=== PATIENT | female | born 1995 | race American Indian/Alaskan Native ===

== ENCOUNTER 2020-05-26 12:10 | Emergency (ER) | payer SELFPAY ==
[2020-05-26 14:22] VITALS: BP 132/79
--- NOTE | 2020-05-26 14:23 | Emergency Department Report ---
ED ENT HPI - General Chief complaint: Sore Throat Stated complaint: BODY ACHES/NO SPEECH Time Seen by Provider: 05/26/20 14:18 Source: patient Mode of arrival: Ambulatory Limitations: No Limitations - History of Present Illness Initial comments: This is a 24-year-old female nontoxic well in appearance with no signs of distress presents to the ED with complaint of sore throat. Patient denies any drooling or hoarseness. Patient denies any other symptoms. Denies any fever, chills, headache, nausea, vomiting, chest pain or SOB. Denies any other comp laints. MD complaint: sore throat -: days(s) Location: throat Severity: mild Severity scale (0 -10): 8 Quality: aching Consistency: constant Improves with: none Worsens with: swallowing Associated Symptoms: pain with swallowing, sore throat. denies: fever, cough, gum swelling, toothache, tinnitus, hearing loss, discharge from ear, rhinorrhea - Related Data Previous Rx's Medication Instructions Recorded Last Taken Type Amoxicillin/K Clav Tab [Augmentin 1 tab PO Q12HR #20 tab 05/26/20 Unknown Rx 875 mg] Ibuprofen [Motrin] 600 mg PO Q8H PRN #20 tablet 05/26/20 Unknown Rx Nystas/Diphen/Xyl Visc/Mylanta 15 ml PO Q4H PRN 5 Days ml 05/26/20 Unknown Rx [Magic Mouthwash] Allergies Allergy/AdvReac Type Severity Reaction Status Date / Time No Known Allergies Allergy Unverified 05/01/20 20:29 ED Dental HPI - General Chief complaint: Sore Throat Stated complaint: BODY ACHES/NO SPEECH Time Seen by Provider: 05/26/20 14:18 Source: patient Mode of arrival: Ambulatory Limitations: No Limitations - Related Data Previous Rx's Medication Instructions Recorded Last Taken Type Amoxicillin/K Clav Tab [Augmentin 1 tab PO Q12HR #20 tab 05/26/20 Unknown Rx 875 mg] Ibuprofen [Motrin] 600 mg PO Q8H PRN #20 tablet 05/26/20 Unknown Rx Nystas/Diphen/Xyl Visc/Mylanta 15 ml PO Q4H PRN 5 Days ml 05/26/20 Unknown Rx [Magic Mouthwash] Allergies Allergy/AdvReac Type Severity Reaction Status Date / Time No Known Allergies Allergy Unverified 05/01/20 20:29 ED Review of Systems ROS: Stated complaint: BODY ACHES/NO SPEECH Other details as noted in HPI Constitutional: denies: chills, fever Eyes: denies: eye pain, eye discharge, vision change ENT: throat pain. denies: ear pain Respiratory: denies: cough, shortness of breath, wheezing Cardiovascular: denies: chest pain, palpitations Endocrine: no symptoms reported Gastrointestinal: denies: abdominal pain, nausea, diarrhea Genitourinary: denies: urgency, dysuria, discharge Musculoskeletal: denies: back pain, joint swelling, arthralgia Skin: denies: rash, lesions Neurological: denies: headache, weakness, paresthesias Psychiatric: denies: anxiety, depression Hematological/Lymphatic: denies: easy bleeding, easy bruising ED Past Medical Hx - Past Medical History Previous Medical History?: No - Surgical History Past Surgical History?: No - Social History Smoking Status: Current Every Day Smoker Substance Use Type: None - Medications Home Medications: Home Medications Medication Instructions Recorded Confirmed Last Taken Type Amoxicillin/K Clav Tab [Augmentin 1 tab PO Q12HR #20 tab 05/26/20 Unknown Rx 875 mg] Ibuprofen [Motrin] 600 mg PO Q8H PRN #20 tablet 05/26/20 Unknown Rx Nystas/Diphen/Xyl Visc/Mylanta 15 ml PO Q4H PRN 5 Days ml 05/26/20 Unknown Rx [Magic Mouthwash] ED Physical Exam - General Limitations: No Limitations General appearance: alert, in no apparent distress - Head Head exam: Present: atraumatic, normocephalic - Eye Eye exam: Present: normal appearance - Expanded ENT Exam Expanded Ear exam: Present: normal external inspection Mouth exam: Present: normal external inspection. Absent: drooling, trismus, muffled voice Teeth exam: Present: normal inspection Throat exam: Positive: tonsillar erythema, tonsillomegaly (2+), tonsillar exudate, other (uvula midline. no abscess). Negative: R peritonsillar mass, L peritonsillar mass - Neck Neck exam: Present: normal inspection, full ROM. Absent: tenderness, meningismus, lymphadenopathy - Respiratory Respiratory exam: Present: normal lung sounds bilaterally. Absent: respiratory distress, wheezes, rales, rhonchi, stridor, chest wall tenderness, accessory muscle use, decreased breath sounds, prolonged expiratory - Cardiovascular Cardiovascular Exam: Present: regular rate, normal rhythm, normal heart sounds. Absent: bradycardia, tachycardia, irregular rhythm, systolic murmur, diastolic murmur, rubs, gallop - Extremities Exam Extremities exam: Present: full ROM - Back Exam Back exam: Present: full ROM. Absent: tenderness, CVA tenderness (R), CVA tenderness (L), muscle spasm, paraspinal tenderness, vertebral tenderness, rash noted - Neurological Exam Neurological exam: Present: alert, oriented X3, normal gait - Psychiatric Psychiatric exam: Present: normal affect, normal mood - Skin Skin exam: Present: warm, dry, intact, normal color. Absent: rash ED Course Vital Signs 05/26/20 14:18 Temperature 100.1 F H Pulse Rate 77 Respiratory 14 Rate Blood Pressure 132/79 [Left] O2 Sat by Pulse 99 Oximetry - Reevaluation(s) Reevaluation #1: 05/26/20 14:21 Patient is speaking in full sentences with no signs of distress noted. ED Medical Decision Making - Medical Decision Making Patient was instructed to Follow-up with a primary care doctor in 3-5 days or if symptoms worsen and continue return to emergency room as soon as possible. At time of discharge, the patient does not seem toxic or ill in appearance. No acute signs of distress noted. Patient agrees to discharge treatment plan of care. No further questions noted by the patient. Critical care attestation.: If time is entered above; I have spent that time in minutes in the direct care of this critically ill patient, excluding procedure time. ED Disposition Clinical Impression: Tonsillitis with exudate Disposition: DC-01 TO HOME OR SELFCARE Is pt being admited?: No Does the pt Need Aspirin: No Condition: Stable Instructions: Tonsillitis (ED) Additional Instructions: Follow-up with a primary care doctor in 3-5 days or if symptoms worsen and continue return to emergency room as soon as possible. Prescriptions: Amoxicillin/K Clav Tab [Augmentin 875 mg] 1 tab PO Q12HR #20 tab Nystas/Diphen/Xyl Visc/Mylanta [Magic Mouthwash] 15 ml PO Q4H PRN 5 Days ml PRN Reason: Sore Throat Ibuprofen [Motrin] 600 mg PO Q8H PRN #20 tablet PRN Reason: Pain/Fever Referrals: PRIMARY CARE,MD [Referring] - 3-5 Days EKATERINA HILL MD [Staff Physician] - 3-5 Days Forms: Work/School Release Form(ED)
== END 2020-05-26 14:45 | disposition home or self-care (01) ==
LOC: ED 12:10
DX: J03.90 Acute tonsillitis, unspecified (principal); F17.200 Nicotine dependence, unspecified, uncomplicated; Z79.899 Other long term (current) drug therapy
CPT/HCPCS: 99282

== ENCOUNTER 2020-11-01 22:19 | Emergency (ER) | payer SELFPAY ==
--- NOTE | 2020-11-01 22:35 | Emergency Department Report ---
ED Female HPI - General Stated complaint: DISCHARGE Time Seen by Provider: 11/01/20 22:32 Source: patient Limitations: No Limitations - History of Present Illness Initial comments: Patient is a 25-year-old female who presents for STD exposure with dysuria frequency and urgency x3 days. Last menstrual cycle was 2 weeks ago. There is been no fever, chills, or nausea vomiting. Patient is tolerating p.o. intake without symptoms. Vaginal discharge is described as white thick malodorous. There is been no bleeding. MD Complaint: vaginal discharge, dysuria, possible STD - Related Data Previous Rx's Medication Instructions Recorded Last Taken Type Amoxicillin/K Clav Tab [Augmentin 1 tab PO Q12HR #20 tab 05/26/20 Unknown Rx 875 mg] Ibuprofen [Motrin] 600 mg PO Q8H PRN #20 tablet 05/26/20 Unknown Rx Nystas/Diphen/Xyl Visc/Mylanta 15 ml PO Q4H PRN 5 Days ml 05/26/20 Unknown Rx [Magic Mouthwash] metroNIDAZOLE [Flagyl] 500 mg PO BID 7 Days #14 tab 11/01/20 Unknown Rx Allergies Allergy/AdvReac Type Severity Reaction Status Date / Time No Known Allergies Allergy Unverified 05/26/20 14:27 ED Review of Systems ROS: Stated complaint: DISCHARGE Other details as noted in HPI Constitutional: denies: chills, fever Eyes: denies: eye pain, eye discharge, vision change ENT: denies: ear pain, throat pain Respiratory: denies: cough, shortness of breath, wheezing Cardiovascular: denies: chest pain, palpitations Endocrine: no symptoms reported Gastrointestinal: denies: abdominal pain, nausea, vomiting, diarrhea Genitourinary: urgency, dysuria, frequency, discharge. denies: hematuria Musculoskeletal: denies: back pain, joint swelling, arthralgia Skin: denies: rash, lesions Neurological: denies: headache, weakness, paresthesias Psychiatric: as per HPI Hematological/Lymphatic: denies: easy bleeding, easy bruising ED Past Medical Hx - Social History Smoking Status: Current Every Day Smoker Substance Use Type: None - Medications Home Medications: Home Medications Medication Instructions Recorded Confirmed Last Taken Type Amoxicillin/K Clav Tab [Augmentin 1 tab PO Q12HR #20 tab 05/26/20 Unknown Rx 875 mg] Ibuprofen [Motrin] 600 mg PO Q8H PRN #20 tablet 05/26/20 Unknown Rx Nystas/Diphen/Xyl Visc/Mylanta 15 ml PO Q4H PRN 5 Days ml 05/26/20 Unknown Rx [Magic Mouthwash] metroNIDAZOLE [Flagyl] 500 mg PO BID 7 Days #14 tab 11/01/20 Unknown Rx ED Physical Exam - General General appearance: alert, in no apparent distress - Head Head exam: Present: atraumatic, normocephalic - Eye Eye exam: Present: normal appearance - ENT ENT exam: Present: mucous membranes moist - Neck Neck exam: Present: normal inspection - Respiratory Respiratory exam: Present: normal lung sounds bilaterally. Absent: respiratory distress - Cardiovascular Cardiovascular Exam: Present: regular rate, normal rhythm. Absent: systolic murmur, diastolic murmur, rubs, gallop - GI/Abdominal GI/Abdominal exam: Present: soft, normal bowel sounds. Absent: distended, tenderness, guarding, rebound, rigid, bruit, hernia - Rectal Rectal exam: Present: deferred - External exam: Present: other (deferred by patient ) - Extremities Exam Extremities exam: Present: normal inspection, full ROM. Absent: tenderness - Back Exam Back exam: Present: normal inspection, full ROM. Absent: tenderness, CVA tenderness (R), CVA tenderness (L) - Neurological Exam Neurological exam: Present: alert, oriented X3, CN II-XII intact - Psychiatric Psychiatric exam: Present: normal affect, normal mood - Skin Skin exam: Present: warm, dry, intact, normal color. Absent: rash ED Medical Decision Making - Lab Data Labs 11/01/20 22:53 Urine Color Straw Urine Turbidity Clear Urine pH 8.0 H Ur Specific [place] 1.011 Urine Protein <15 mg/dl Urine Glucose (UA) Neg Urine Ketones Neg Urine Blood Mod Urine Nitrite Neg Urine Bilirubin Neg Urine Urobilinogen < 2.0 Ur Leukocyte Esterase Neg Urine WBC (Auto) < 1.0 Urine RBC (Auto) 1.0 U Epithel Cells (Auto) 4.0 Urine Bacteria (Auto) 1+ Urine HCG, Qual Negative - Medical Decision Making hcg neg, ua: noted , plan tx for STI, follow up with pcp, health department for HIV and HSV screening , pt verbalized agreement and understanding of discharge plan. Critical care attestation.: If time is entered above; I have spent that time in minutes in the direct care of this critically ill patient, excluding procedure time. ED Disposition Clinical Impression: STI (sexually transmitted infection) Vaginitis Qualifiers: Chronicity: acute Qualified Code(s): N76.0 - Acute vaginitis Disposition: TO HOME OR SELFCARE Is pt being admited?: No Does the pt Need Aspirin: No Condition: Stable Instructions: Bacterial Vaginosis, [id number], Preventing Sexually Transmitted Infections, Adult Prescriptions: metroNIDAZOLE [Flagyl] 500 mg PO BID 7 Days #14 tab Referrals: [facility] [Provider Group] - 3-5 Days Forms: Work/School Release Form(ED) Time of Disposition: 23:39
[2020-11-01 23:05] LABS: Bacteria,Urine 1+ /HPF (Negative); Bilirubin,Urine NEG (Negative); Blood,Urine MOD (Negative); Color,Urine Straw (Yellow); Protein,Urine <15 mg/dL mg/dL (Negative); Urobilinogen,Urine < 2.0 mg/dL (<2.0); WBC,Urine < 1.0 /HPF (0.0-6.0)
[2020-11-01 23:07] LABS: HCG Qualitative,Urine Negative (Negative)
[2020-11-01] MEDS ORDERED: LIDOCAINE-MPF (1%) 10 MG/1 ML VIAL 5 ML INFILTRATI ONE (23:35)
[2020-11-01] MEDS ORDERED: AZITHROMYCIN 250 MG TAB PO ONE (23:35)
== END 2020-11-02 00:35 | disposition home or self-care (01) ==
LOC: ED 22:19
DX: A64 Unspecified sexually transmitted disease (principal); N76.0 Acute vaginitis; F17.200 Nicotine dependence, unspecified, uncomplicated; Z79.899 Other long term (current) drug therapy
CPT/HCPCS: 81001; 81025; 99283; J0696

== ENCOUNTER 2021-06-23 06:15 | Emergency (ER) | payer SELFPAY ==
[2021-06-23] MEDS ORDERED: KETOROLAC 30 MG/1 ML INJ IM ONE (06:22)
--- NOTE | 2021-06-23 06:24 | Event Note ---
ED Screening Note Date of service: 06/23/21 Time: 06:23 ED Screening Note: Patient 25-year-old -Turk[place] female who presents for right flank pain radiating to buttocks since last night. Patient states 5/10 pain achy spasming after attempting to pepper picker her dog and last night. Patient denies fall injury or trauma, there is no numbness tingling or paralysis there is been no loss or decrease in bowel or bladder function. Patient arrived to ED via POV patient is amatory patient is alert oriented x3 no acute distress. Patient denies dysuria frequency or urgency. Denies history of back injury. This initial assessment/diagnostic orders/clinical plan/treatment(s) is/are subject to change based on patients health status, clinical progression and re- assessment by fellow clinical providers in the ED. Further treatment and workup at subsequent clinical providers discretion. Patient/guardian urged not to elope from the ED as their condition may be serious if not clinically assessed and managed. Initial orders include: Ketoralac,
[2021-06-23] MEDS ORDERED: CYCLOBENZAPRINE 10 MG TAB PO ONE (06:32)
--- NOTE | 2021-06-23 06:38 | Emergency Department Report ---
HPI - General Time Seen by Provider: 06/23/21 06:26 - HPI HPI: Due to the Covid pandemic and our limited bed availability at this time, the patient was seen in an area of the emergency department that is not necessarily private. I asked the patient if they would like to wait to find a private room/area to do the history and physical, but I was given permission by the patient to proceed. We will attempt to find a more private area for further evaluation, treatment, and discussion of results if necessary. 25-year-old -[place] female presents to the emergency department with complaint of right-sided back pain that starts at the top of her buttock and goes up to the mid to lower back. 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 There is no further radiation of the pain. She denies any numbness or paresthesias, problems with bowel or bladder, or any neurological deficits. Currently the pain is 5 out of 10 in intensity, but worsens with any movement, standing or ambulation. No known alleviating factors. She has not taken anything for symptoms prior to presentation. She denies any other past medical history. ED Past Medical Hx - Past Medical History Previous Medical History?: No - Surgical History Past Surgical History?: No - Social History Smoking Status: Current Every Day Smoker - Medications Home Medications: Home Medications Medication Instructions Recorded Confirmed Last Taken Type Amoxicillin/K Clav Tab [Augmentin 1 tab PO Q12HR #20 tab 05/26/20 Unknown Rx 875 mg] Nystas/Diphen/Xyl Visc/Mylanta 15 ml PO Q4H PRN 5 Days ml 05/26/20 Unknown Rx [Magic Mouthwash] metroNIDAZOLE [Flagyl] 500 mg PO BID 7 Days #14 tab 11/01/20 Unknown Rx Cyclobenzaprine [Flexeril] 10 mg PO TID PRN #12 tablet 06/23/21 Unknown Rx Ibuprofen [Motrin 600 MG tab] 600 mg PO Q8H PRN #20 tablet 06/23/21 Unknown Rx ED Review of Systems ROS: Stated complaint: BACK/ANKLE PAIN Other details as noted in HPI Comment: All other systems reviewed and negative Constitutional: denies: chills, fever Eyes: denies: eye pain, vision change ENT: denies: ear pain, throat pain Respiratory: denies: cough, shortness of breath Cardiovascular: denies: chest pain, palpitations Gastrointestinal: denies: abdominal pain, vomiting Genitourinary: denies: dysuria, discharge Musculoskeletal: back pain. denies: arthralgia Skin: denies: rash, lesions Neurological: denies: headache, weakness Physical Exam - Physical Exam Vital Signs: Vital Signs 06/23/21 06/23/21 06:16 06:29 Temperature 98.4 F 97.7 F Pulse Rate 69 61 Respiratory 18 Rate Blood Pressure 122/95 133/77 O2 Sat by Pulse 99 Oximetry Physical Exam: GENERAL: The patient is well-developed well-nourished. HENT: Normocephalic. Atraumatic. Patient has moist mucous membranes. EYES: Extraocular motions are intact. NECK: Supple. Trachea is midline. CHEST/LUNGS: Clear to auscultation. There is no respiratory distress noted. HEART/CARDIOVASCULAR: Regular. There is no tachycardia. There is no murmur. ABDOMEN: Abdomen is soft, nontender. Patient has normal bowel sounds. SKIN: Skin is warm and dry. NEURO: The patient is awake, alert, and oriented. The patient is cooperative. The patient has no focal neurologic deficits. Normal speech. MUSCULOSKELETAL: There is no tenderness or deformity. There is no limitation range of motion. Muscle strength 5 out of 5 for upper and lower extremities bilaterally. BACK: There is bilateral lumbar paraspinal, and right-sided lower thoracic paraspinal, tenderness to palpation with associated taut musculature. No midline thoracic or lumbar tenderness to palpation. ED Course Vital Signs 06/23/21 06/23/21 06:16 06:29 Temperature 98.4 F 97.7 F Pulse Rate 69 61 Respiratory 18 Rate Blood Pressure 122/95 133/77 O2 Sat by Pulse 99 Oximetry ED Medical Decision Making - Medical Decision Making This patient presents to the emergency department with right-sided back pain from the top of her buttock up through the mid back. There is a known inciting event, after she began lifting her dog out last night. There is reproducible tenderness to palpation with associated taut musculature. No midline thoracic or lumbar tenderness to palpation. She denies any numbness or paresthesias, problems with bowel or bladder, or any neurological deficits. The patient was seen ambulatory in the emergency department both appears and feels stable. She was given a dose of Toradol and Flexeril and upon reevaluation is feeling improved. All this together does not appear consistent with any of the emergent back condition such as cauda equina, cord compression syndrome, or epidural abscess. Patient has been given outpatient referral for an orthopedist and directed to follow-up with a PCP. She will return to the emergency department with any worsening of her symptoms or with any acute distress. Critical Care Time: No Critical care attestation.: If time is entered above; I have spent that time in minutes in the direct care of this critically ill patient, excluding procedure time. ED Disposition Clinical Impression: Muscle spasm Back pain Qualifiers: Back pain location: back pain in unspecified location Chronicity: acute Back pain laterality: right Qualified Code(s): M54.9 - Dorsalgia, unspecified Disposition: 01 HOME / SELF CARE / HOMELESS Is pt being admited?: No Condition: Stable Instructions: Muscle Cramps and Spasms, Acute Back Pain, Adult Additional Instructions: Please follow-up with a primary care physician in the next few days. I am also giving you a referral for 2 different local orthopedic groups, Dr. Hardy and [facility], to follow-up regarding your back pains. Return to the emergency department with any worsening of your symptoms, new or concerning symptoms not addressed during this current emergency department visit, or with any acute distress. You have been prescribed a medication that is sedating and therefore should not be taken prior to driving, working, and responsible for children and in no way should be mixed with alcohol of any quantity. Prescriptions: Cyclobenzaprine [Flexeril] 10 mg PO TID PRN #12 tablet PRN Reason: Muscle Spasm Ibuprofen [Motrin 600 MG tab] 600 mg PO Q8H PRN #20 tablet PRN Reason: Pain/Fever Referrals: PRIMARY MD ARLENE [Primary Care Provider] - 2-3 Days JACLYN HARDY MD [Staff Physician] - 2-3 Days [facility] [Provider Group] - 2-3 Days Time of Disposition: 08:41
[2021-06-23 08:34] LABS: Bilirubin,Urine NEG (Negative); Blood,Urine NEG (Negative); Color,Urine Yellow (Yellow); Hyaline Casts,Urine 1 /LPF; Mucus,Urine 3+ /HPF; Renal Epithelial Cells,Urine 3 /LPF
[2021-06-23 08:42] LABS: HCG Qualitative,Urine Negative (Negative)
[2021-06-23 09:04] VITALS: BP 125/87
== END 2021-06-23 09:03 | disposition home or self-care (01) ==
LOC: ED 06:15
DX: M62.830 Muscle spasm of back (principal); M54.5 Low back pain; M54.6 Pain in thoracic spine; F17.200 Nicotine dependence, unspecified, uncomplicated
CPT/HCPCS: 81001; 81025; 87086; 96372; 99283; J1885

== ENCOUNTER 2021-06-25 13:33 | Emergency (ER) | payer OTHER ==
[2021-06-25] MEDS ORDERED: IBUPROFEN 800 MG TAB PO ONE (14:13)
[2021-06-25 14:20] VITALS: BP 149/89
--- NOTE | 2021-06-25 14:50 | XRay Report ---
LEFT ANKLE 3 VIEW(S) INDICATION / CLINICAL INFORMATION: ankle pain and swelling COMPARISON: None available. FINDINGS: BONES / JOINT(S): No acute fracture or subluxation. No significant arthritis. SOFT TISSUES: Soft tissue swelling predominantly about the lateral aspect of the ankle. ADDITIONAL FINDINGS: None. Signer Name: Dinh Shipman MD Signed: 06/25/2021 2:46 PM Workstation Name: [id number]
--- NOTE | 2021-06-25 14:56 | Emergency Department Report ---
ED Lower Extremity HPI - General Chief Complaint: Extremity Injury, Lower Stated Complaint: L ANKLE INJURY Time Seen by Provider: 06/25/21 14:07 Source: patient Mode of arrival: Ambulatory Limitations: No Limitations - History of Present Illness Initial Comments: This is a 25-year-old female nontoxic, well nourished in appearance, no acute signs of distress presents to the ED with c/o of left ankle pain x 1 day. Patient stated that she was walking and twisted her ankle. Patient denies any other injures or trauma. Patient denies any numbness, tingling, fever, chills, nausea, vomiting, chest pain, shortness of breath, headache, stiff neck. Patient denies any joint swelling or joint redness. Patient denies decreased range of motion. Patient stated has decreased gait due to pain. Patient denies any allergies. MD Complaint: ankle injury -: days(s) Injury: Ankle: Left Place: street/outdoors Severity: mild Severity scale (0 -10): 8 Improves With: immobilization Worsens With: weight bearing, movement, palpation Associated Symptoms: swelling, able to partially bear weight. denies: snap/pop sensation, numbness, tingling, unable to bear weight - Related Data Previous Rx's Medication Instructions Recorded Last Taken Type Amoxicillin/K Clav Tab [Augmentin 1 tab PO Q12HR #20 tab 05/26/20 Unknown Rx 875 mg] Nystas/Diphen/Xyl Visc/Mylanta 15 ml PO Q4H PRN 5 Days ml 05/26/20 Unknown Rx [Magic Mouthwash] metroNIDAZOLE [Flagyl] 500 mg PO BID 7 Days #14 tab 11/01/20 Unknown Rx Cyclobenzaprine [Flexeril] 10 mg PO TID PRN #12 tablet 06/23/21 Unknown Rx Ibuprofen [Motrin 600 MG tab] 600 mg PO Q8H PRN #20 tablet 06/23/21 Unknown Rx Allergies Allergy/AdvReac Type Severity Reaction Status Date / Time No Known Allergies Allergy Verified 06/23/21 06:32 ED Review of Systems ROS: Stated complaint: L ANKLE INJURY Other details as noted in HPI Comment: All other systems reviewed and negative Constitutional: denies: chills, fever Eyes: denies: eye pain, eye discharge, vision change ENT: denies: ear pain, throat pain Respiratory: denies: cough, shortness of breath, wheezing Cardiovascular: denies: chest pain, palpitations Endocrine: no symptoms reported Gastrointestinal: denies: abdominal pain, nausea, diarrhea Genitourinary: denies: urgency, dysuria, discharge Musculoskeletal: denies: back pain, joint swelling, arthralgia Skin: denies: rash, lesions Neurological: denies: headache, weakness, paresthesias Psychiatric: denies: anxiety, depression Hematological/Lymphatic: denies: easy bleeding, easy bruising ED Past Medical Hx - Past Medical History Previous Medical History?: Yes Additional medical history: muscle spasm - Surgical History Past Surgical History?: No - Social History Smoking Status: Current Every Day Smoker Substance Use Type: Alcohol - Medications Home Medications: Home Medications Medication Instructions Recorded Confirmed Last Taken Type Amoxicillin/K Clav Tab [Augmentin 1 tab PO Q12HR #20 tab 05/26/20 Unknown Rx 875 mg] Nystas/Diphen/Xyl Visc/Mylanta 15 ml PO Q4H PRN 5 Days ml 05/26/20 Unknown Rx [Magic Mouthwash] metroNIDAZOLE [Flagyl] 500 mg PO BID 7 Days #14 tab 11/01/20 Unknown Rx Cyclobenzaprine [Flexeril] 10 mg PO TID PRN #12 tablet 06/23/21 Unknown Rx Ibuprofen [Motrin 600 MG tab] 600 mg PO Q8H PRN #20 tablet 06/23/21 Unknown Rx ED Physical Exam - General Limitations: No Limitations General appearance: alert, in no apparent distress - Head Head exam: Present: atraumatic, normocephalic - Eye Eye exam: Present: normal appearance - Neck Neck exam: Present: normal inspection, full ROM. Absent: lymphadenopathy - Respiratory Respiratory exam: Absent: respiratory distress - Cardiovascular Cardiovascular Exam: Present: regular rate - Extremities Exam Extremities exam: Present: full ROM, tenderness, normal capillary refill, other (negative hassan test to left leg). Absent: joint swelling, calf tenderness - Expanded Lower Extremity Exam Left Hip exam: Present: normal inspection, full ROM. Absent: tenderness, swelling Upper Leg exam: Present: normal inspection, full ROM. Absent: tenderness, swelling Knee exam: Present: normal inspection, full ROM. Absent: tenderness, swelling Lower Leg exam: Present: normal inspection, full ROM. Absent: tenderness, swelling Ankle exam: Present: full ROM, tenderness, swelling. Absent: abrasion, laceration, ecchymosis, deformity, crepidus, dislocation, erythema, anterior draw sign Foot/Toe exam: Present: normal inspection, full ROM. Absent: tenderness, swelling, abrasion, laceration, ecchymosis, deformity, crepidus, dislocation, erythema, amputation, puncture wound, foreign body, calcaneal tenderness, tenderness at base of 5th metatarsal, nail avulsion, subungual hematoma Neuro vascular tendon exam: Present: no vascular compromise Gait: Positive: observed and limited by pain - Back Exam Back exam: Present: normal inspection, full ROM - Neurological Exam Neurological exam: Present: alert, oriented X3 - Psychiatric Psychiatric exam: Present: normal affect, normal mood - Skin Skin exam: Present: warm, dry, intact, normal color. Absent: rash ED Course Vital Signs 06/25/21 14:14 Temperature 97.8 F Pulse Rate 98 H Respiratory 18 Rate Blood Pressure 149/89 O2 Sat by Pulse 100 Oximetry - Reevaluation(s) Reevaluation #1: 06/25/21 14:54 Patient is speaking in full sentences with no signs of distress noted. ED Lower Extremity MDM - Radiology Data [facility] [address] [place] [address] XRay Report Signed Patient: KATEY VELASQUEZ MR#: [id number] : 1995 Acct:[id number] Age/Sex: 25 / F ADM Date: 06/25/21 Loc: ED Attending Dr: Ordering Physician: GNIA CABRALES NP Date of Service: 06/25/21 Procedure(s): XR ankle 3+V LT Accession Number(s): [id number] cc: GINA CABRALES NP Fluoro Time In Minutes: LEFT ANKLE 3 VIEW(S) INDICATION / CLINICAL INFORMATION: ankle pain and swelling COMPARISON: None available. FINDINGS: BONES / JOINT(S): No acute fracture or subluxation. No significant arthritis. SOFT TISSUES: Soft tissue swelling predominantly about the lateral aspect of the ankle. ADDITIONAL FINDINGS: None. Signer Name: Dinh Shipman MD Signed: 06/25/2021 2:46 PM Workstation Name: [id number] Transcribed By: SB Dictated By: DINH SHIPMAN MD Electronically Authenticated By: DINH SHIPMAN MD Signed Date/Time: 06/25/211445 DD/ 45 TD/TT: Print Cancel - Medical Decision Making This is a 25-year-old female that presents with left ankle strain. Patient is stable and was examined by me. I referred patient to an orthopedic doctor for further evaluation for possible MRI. Patient does have normal gait with some tenderness and no joint swelling. No ecchymosis. no joint redness. Not warm to touch. No signs of cellulites present. Patient received brittanie wrap. Patient was instructed to RICE therapy. Patient was not found to give patient the xray results. Patient ELOPED before reassessment/medications and appropriate discharge instructions/treatment. Critical care attestation.: If time is entered above; I have spent that time in minutes in the direct care of this critically ill patient, excluding procedure time. ED Disposition Clinical Impression: Left ankle sprain Qualifiers: Encounter type: initial encounter Involved ligament of ankle: unspecified ligament Qualified Code(s): S93.402A - Sprain of unspecified ligament of left ankle, initial encounter Disposition: 07 LEFT AWOL/ELOPED Is pt being admited?: No Condition: Undetermined Time of Disposition: 15:10
== END 2021-06-25 15:08 | disposition left against medical advice (07) ==
LOC: ED 13:33
DX: S93.402A Sprain of unspecified ligament of left ankle, initial encounter (principal); F17.200 Nicotine dependence, unspecified, uncomplicated; Z72.89 Other problems related to lifestyle; Z79.899 Other long term (current) drug therapy; X50.1XXA Overexertion from prolonged static or awkward postures, initial encounter; Y93.89 Activity, other specified; Y92.89 Other specified places as the place of occurrence of the external cause; Y99.8 Other external cause status
CPT/HCPCS: 99283